=== PATIENT | male | born 1935 | race Caucasian/White ===

== ENCOUNTER 2016-11-23 11:17 | Inpatient (IN) | payer OTHER ==
[2016-11-23 11:36] VITALS: BMI 29.2
[2016-11-23] MEDS ORDERED: Sodium Chloride 0.9% 500 ML IV ONE ×2 (12:49→13:08)
[2016-11-23 13:14] LABS: BASO % 0.7 % (0.0-2.0); EOS # 0.1 K/uL (0.0-0.7); EOS % 1.8 % (0.0-4.0); LYMPH # 1.5 K/uL (1.0-4.3); LYMPH % 26.8 % (20.0-40.0); MEAN CELL VOLUME 89.3 fL (80.0-94.0); MEAN CORPUSCULAR HEMOGLOBIN 29.4 pg (27.0-31.0); MEAN CORPUSCULAR HGB CONC 32.9 g/dL (33.0-37.0); MEAN PLATELET VOLUME 11.1 fL (7.2-11.7); MONO # 0.6 K/uL (0.0-0.8); MONO % 11.3 % (0.0-10.0); NRBC % 0.1 % (0.0-2.0); RED CELL DISTRIBUTION WIDTH 13.7 % (11.5-14.5); WHITE BLOOD COUNT 5.7 K/uL (4.8-10.8)
[2016-11-23 13:15] LABS: URINE BILIRUBIN NEGATIVE (NEGATIVE); URINE BLOOD 1+ (NEGATIVE); URINE COLOR Yellow (YELLOW); URINE GLUCOSE (UA) NORMAL (Normal); URINE KETONE NEGATIVE (NEGATIVE); URINE LEUKOCYTE ESTERASE NEG Leu/uL (Negative); URINE PROTEIN NEGATIVE (NEGATIVE); URINE UROBILINOGEN NORMAL mg/dL (0.2-1.0); WBC URINE < 1 /hpf (0-5)
[2016-11-23 13:21] LABS: CHLORIDE 99 mmol/L (98-107)
[2016-11-23 13:22] LABS: POTASSIUM 4.8 mmol/L (3.6-5.2); SODIUM 137 mmol/L (132-148)
[2016-11-23 13:24] LABS: CARBON DIOXIDE 27 mmol/L (22-30); GFR AFRICAN-AMERICAN > 60
[2016-11-23 13:25] LABS: ALB/GLOB RATIO 1.1 (1.0-2.1); ALKALINE PHOSPHATASE 76 U/L (38-126); ALT/SGPT 20 U/L (21-72); AST/SGOT 22 U/L (17-59); BILIRUBIN,TOTAL 1.4 mg/dL (0.2-1.3); BLOOD UREA NITROGEN 24 mg/dL (9-20); GLUCOSE,RANDOM 104 mg/dL (75-110); TOTAL PROTEIN 7.8 g/dL (6.3-8.3)
[2016-11-23 13:37] LABS: RBC URINE 1 /hpf (0-3)
--- NOTE | 2016-11-23 14:03 | RAD ---
PROCEDURE: Left Knee Radiographs. HISTORY: Pain. COMPARISON: None. FINDINGS: BONES: Normal. No fracture. 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 Lesser narrowing of lateral joint compartment. Narrowing of patellofemoral articulation noted. No articular erosions. JOINT EFFUSION: None. OTHER FINDINGS: None. IMPRESSION: Tricompartmental osteoarthritis most severe medially.
--- NOTE | 2016-11-23 14:05 | RAD ---
PROCEDURE: CHEST RADIOGRAPH, 1 VIEW HISTORY: SOB COMPARISON: None available. FINDINGS: LUNGS: Hazy opacity noted at left costophrenic angle. Vague opacity at lateral left base. Possible small pleural effusion cannot rule out consolidation. PLEURA: No right pleural effusion. No pneumothorax per CARDIOVASCULAR: Permanent pacemaker. Sternotomy wires. OSSEOUS STRUCTURES: No significant abnormalities. VISUALIZED UPPER ABDOMEN: Normal. OTHER FINDINGS: None. IMPRESSION: Possible small left pleural effusion versus left basilar consolidation.
--- NOTE | 2016-11-23 14:24 | C.PDOC ---
History Of Present Illness The patient, an 81 y/o male, PMH HTN presents to the emergency department for evaluation of left knee pain and weakness which began s/p fall earlier today. Patient states his left leg is weak and gives out. Admits to hitting head today , no LOC/N/Vsyncope/dizziness. ALso notes two other falls this week. USe cane to ambulate. Also admits to chest pain s/p open heart 5 years ago. He currently reports right hand numbness and slight shortness of breath. 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 Also notes constipation and urinary frequency. No back pain. No fever. No trauma. 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) History/Exam Limitations: language barrier (Portuguese ) Onset/Duration Of Symptoms: Hrs Current Symptoms Are (Timing): Still Present Additional History Per: Patient - Knee Description Of Injury: Fell Past Medical History Reviewed: Historical Data, Nursing Documentation, Vital Signs Vital Signs: Last Vital Signs Temp 99.1 F 11/23/16 17:38 Pulse 77 11/23/16 17:38 Resp 18 11/23/16 17:38 BP 170/71 H 11/23/16 17:38 Pulse Ox 98 11/23/16 17:48 - Medical History PMH: HTN Family History: States: Unknown Family Hx - Social History Hx Alcohol Use: No Hx Substance Use: No - Immunization History Hx Tetanus Toxoid Vaccination: No Hx Influenza Vaccination: Yes Hx Pneumococcal Vaccination: No Review Of Systems Except As Marked, All Systems Reviewed And Found Negative. Constitutional: Negative for: Fever, Chills Cardiovascular: Positive for: Chest Pain Respiratory: Positive for: Shortness of Breath Musculoskeletal: Positive for: Other (+left knee pain and weakness ) Neurological: Positive for: Numbness (right upper extremity ) Physical Exam - Physical Exam Appears: Non-toxic, No Acute Distress Skin: Normal Color, Warm Head: Normacephalic, No Tenderness, No Swelling, Abrasion (superficial to posterior scalp ), No Laceration Eye(s): bilateral: Normal Inspection, PERRL, EOMI Ear(s): Bilateral: Normal Nose: Normal, No Discharge, No Epistaxis, No Septal Hematoma Oral Mucosa: Moist Throat: Normal, No Erythema, No Exudate Neck: Normal ROM, Supple Chest: Symmetrical, No Deformity, No Tenderness Cardiovascular: Rhythm Regular, No Murmur Respiratory: Normal Breath Sounds, No Rales, No Rhonchi, No Wheezing Gastrointestinal/Abdominal: Soft, No Tenderness, No Guarding, No Rebound Back: Normal Inspection, No Vertebral Tenderness, No Paraspinal Tenderness Extremity: Normal ROM, No Tenderness, No Calf Tenderness, Capillary Refill ( less than 2 seconds ), No Deformity, Swelling (mild effusion to left knee ), Other (+superficial abrasion to right knee) Pulses: Left Dorsalis Pedis: Normal, Right Dorsalis Pedis: Normal Neurological/Psych: Oriented x3, Normal Speech, Normal Cognition, Normal Sensation ((-) saddle anesthesia) Gait: Steady ED Course And Treatment - Laboratory Results Result Diagrams: 11/23/16 13:03 11/23/16 13:03 ECG: Interpreted By Me, Viewed By Me Interpretation Of ECG: Atrial-paced rhythm at rate 60 bpm. O2 Sat by Pulse Oximetry: 98 (on RA) Pulse Ox Interpretation: Normal - Other Rad CXR X-Ray: Interpreted by Me, Viewed By Me, Read By Radiologist Interpretation: Accession No. : [id number]. Patient Name / ID : RICHARD BEGUM / [id number]. Exam Date : 11/23/2016 12:52:36 ( Approved ). Study Comment : Sex / Age : M / 81Y. Creator : NICOLAS ZEPEDA. Dictator : Venkatesh Rosen MD. Mailing Machine Operator : Education Program Associate : Venkatesh Rosen MD. Approver2 : Report Date : 11/23/2016 13:05:28. My Comment : . PROCEDURE: CHEST RADIOGRAPH, 1 VIEW. HISTORY: SOB. COMPARISON: None available. FINDINGS: LUNGS: Hazy opacity noted at left costophrenic angle. Vague opacity at lateral left base. Possible small pleural effusion cannot rule out consolidation. PLEURA: No right pleural effusion. No pneumothorax per. CARDIOVASCULAR: Permanent pacemaker. Sternotomy wires. OSSEOUS STRUCTURES: No significant abnormalities. VISUALIZED UPPER ABDOMEN: Normal. OTHER FINDINGS: None. IMPRESSION: Possible small left pleural effusion versus left basilar consolidation. left knee XR X-Ray: Interpreted by Me, Viewed By Me, Read By Radiologist Interpretation: Accession No. : [id number]. Patient Name / ID : RICHARD BEGUM / [id number]. Exam Date : 11/23/2016 12:52:42 ( Approved ). Study Comment : Sex / Age : M / 81Y. Creator : NICOLAS ZEPEDA. Dictator : Venkatesh Rosen MD. Mailing Machine Operator : Education Program Associate : Venkatesh Rosen MD. Approver2 : Report Date : 11/23/2016 13:05:28. My Comment : . PROCEDURE: Left Knee Radiographs. HISTORY: Pain. COMPARISON: None. FINDINGS: BONES: Normal. No fracture. 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 Lesser narrowing of lateral joint compartment. Narrowing of patellofemoral articulation noted. No articular erosions. JOINT EFFUSION: None. OTHER FINDINGS: None. IMPRESSION: Tricompartmental osteoarthritis most severe medially. Progress Note: labs, CT A/P, CXR, Left knee XR, and EKG ordered and reviewed. Pt received Toradol IV and IV Fluids. On re-evaluation, pt notes he deos not feel comofrtable going home. HE is falling too much. Not safe discharge. Pt denies having PMD. Case discussse [facility] Dr Arrington, agreed upon plan and treatment. Case discsused with Dr Amezquita, agreed upon plan and discharge. Disposition - Disposition Disposition: HOSPITALIZED Disposition Time: 17:00 Condition: STABLE - Clinical Impression Clinical Impression: Chest pain, Frequent falls, Weakness - PA / MANAGER GROCERY / Resident Statement MD/DO has reviewed & agrees with the documentation as recorded. - Scribe Statement The provider has reviewed the documentation as recorded by the Scribe (Zeinab Raymundo) All medical record entries made by the Scribe were at my direction and personally dictated by me. I have reviewed the chart and agree that the record accurately reflects my personal performance of the history, physical exam, medical decision making, and the department course for this patient. I have also personally directed, reviewed, and agree with the discharge instructions and disposition.
--- NOTE | 2016-11-23 14:56 | CT ---
PROCEDURE: CT HEAD WITHOUT CONTRAST. HISTORY: fall COMPARISON: None available. TECHNIQUE: Axial computed tomography images were obtained through the head/brain without intravenous contrast. Radiation dose: Total exam DLP = 879.94 mGy-cm. This CT exam was performed using one or more of the following dose reduction techniques: Automated exposure control, adjustment of the mA and/or kV according to patient size, and/or use of iterative reconstruction technique. FINDINGS: HEMORRHAGE: No intracranial hemorrhage. BRAIN: Diffuse atrophy with prominence of the ventricles and sulci noted. No mass effect or edema. The hamilton-white matter differentiation appears intact. Please note that MRI with diffusion imaging is more sensitive in the detection of acute ischemic event. VENTRICLES: No hydrocephalus. CALVARIUM: Unremarkable. PARANASAL SINUSES: Unremarkable as visualized. No significant inflammatory changes. MASTOID AIR CELLS: Under aeration of the mastoid air cells. No air-fluid levels. OTHER FINDINGS: None. IMPRESSION: No acute findings. See above.
--- NOTE | 2016-11-23 17:39 | CP.PCM.HP ---
<Riya Saldivar - Last Filed: 11/23/16 18:10> History of Present Illness - History of Present Illness History of Present Illness: CC: "I keep falling" HPI: Patient is an 81 year old Greek speaking male who presents to the emergency department status post fall earlier today. Patient was brought into the emergency department by his family. Patient states this is the third fall which has occurred in the past 5 days. He had unwitnessed fall 5 and 3 days ago , which did not result in trauma. Patient noted he alerted his neighbors by throwing an orange to them to have assistance following fall. He denies loss of consciousness, vertigo, lightheadedness, tinnitus and trauma. Patient states he fell today by coming down to his knees and subsequently hit hit left head. He denies loss of consciousness on todays episode. Patient attributes falls to severe pain to bilateral lower extremities, generalized fatigue, and blurry vision. He reports pain has been present for the past 5 years but has become increasingly worse over the past few months making ambulation difficult. He typically ambulates using a cane but his mobility has been severely limited as of late due to 10/10 intensity sharp pain to legs, left greater than right. Patient also admits to numbness and tingling to bilateral lower extremities, . Patient admits to reproducible chest pain and notes he follow-up regularly with principal secretary, Dr. Vick Pearson. He is uncertain of his medical history but states he had open heart surgery and pacemaker in the past and admits to history of hypertension and hyperlipidemia. Patient also admits to abdominal pain, nausea, constipation x 3 days, and increased urinary frequency. He denies dysuria. PMD: Dr. Prudencio Artis Mat Cutter: Dr. Pearson Urology: Dr. Horner HPI: hypertension, hyperlipidemia, bradycardia s/p pacemaker placement Medications: Aspirin 81 mg po daily, Metoprolol 25 mg po daily, Solifenacin 10 mg po daily Allergies: NKDA Family History: patient does not know family history Surgical History: Bypass surgery, pacemaker placement Social: Denies tobacco, alcohol, and illicit drug use. Patient uses cane to ambulate. Lives at home with and son. Present on Admission - Present on Admission Any Indicators Present on Admission: No History of DVT/PE: No History of Uncontrolled Diabetes: No Urinary Catheter: No Decubitus Ulcer Present: No Review of Systems - Constitutional Constitutional: Frequent Falls, Lethargy. absent: Anorexia, Chills, Fever, Headache - EENT Eyes: Blurred Vision, Change in Vision Ears: Ear Discharge. absent: Ear Pain, Tinnitus, Disequilibrium, Dizziness Nose/Mouth/Throat: absent: Nasal Congestion, Nasal Discharge - Cardiovascular Cardiovascular: Chest Pain, Claudication. absent: Diaphoresis, Dyspnea, Pain Radiating to Arm/Neck/Jaw, Lightheadedness, Orthopnea, Palpitations, Pedal Edema , Radiating Pain, Rapid Heart Rate, Syncope - Respiratory Respiratory: absent: Cough, Dyspnea, Dyspnea on Exertion, Wheezing, Chest Congestion - Gastrointestinal Gastrointestinal: Abdominal Pain, Constipation, Nausea. absent: Cramping, Diarrhea, Dysphagia, Hematochezia - Genitourinary Genitourinary: Urinary Frequency. absent: Dysuria - Musculoskeletal Musculoskeletal: Abnormal Gait, Joint Swelling, Muscle Cramps, Numbness, Radiating Pain into Limb, Tingling - Integumentary Integumentary: absent: Changing Lesions, New Lesions - Neurological Neurological: Numbness, Frequent Falls, Tingling. absent: Confusion, Dizziness , Headaches, Weakness - Psychiatric Psychiatric: absent: Anxiety, Depression Past Patient History - Past Social History Smoking Status: Never Smoked - CARDIAC Hx Hypertension: Yes - PSYCHIATRIC Hx Substance Use: No - SURGICAL HISTORY Hx Surgeries: Yes Other/Comment: heart implant Meds Allergies/Adverse Reactions: Allergies Allergy/AdvReac Type Severity Reaction Status Date / Time No Known Allergies Allergy Verified 11/23/16 11:35 Physical Exam - Constitutional Appears: Non-toxic, No Acute Distress - Head Exam Head Exam: ATRAUMATIC, NORMAL INSPECTION, NORMOCEPHALIC - Eye Exam Eye Exam: EOMI, Normal appearance, PERRL - ENT Exam ENT Exam: Mucous Membranes Dry - Neck Exam Neck exam: Positive for: Full Rom, Normal Inspection. Negative for: Lymphadenopathy, Tenderness - Respiratory Exam Respiratory Exam: Clear to Auscultation Bilateral, NORMAL BREATHING PATTERN. absent: Decreased Breath Sounds, Rales, Rhonchi, Wheezes - Cardiovascular Exam Cardiovascular Exam: RRR, +S1, +S2. absent: Bradycardia, Tachycardia, Diastolic murmur, Gallop, Systolic Murmur - GI/Abdominal Exam GI & Abdominal Exam: Normal Bowel Sounds, Soft. absent: Distended, Firm, Guarding, Mass, Rigid - Extremities Exam Extremities exam: Positive for: joint swelling, tenderness. Negative for: pedal edema Additional comments: swelling to bilateral knees right lower extremity cooler in temperature than left no pain reaction illicited on right lower extremity. Pain to palpation of left lower extremity Pedal pulse greatly diminished on right LE 2+ Pedal pulse on left limited range of motion of bilateral lower extremity - Neurological Exam Neurological exam: Alert, CN II-XII Intact, Oriented x3 - Psychiatric Exam Psychiatric exam: Normal Affect, Normal Mood Additional comments: continuous oral movements Results - Vital Signs Recent Vital Signs: Last Vital Signs Temp 97.9 F 11/23/16 11:29 Pulse 61 11/23/16 14:30 Resp 18 11/23/16 14:30 BP 161/75 H 11/23/16 14:30 Pulse Ox 98 11/23/16 16:04 - Labs Result Diagrams: 11/23/16 13:03 11/23/16 13:03 Assessment & Plan - Assessment and Plan (Free Text) Assessment: Fall likely secondary to PAD, osteoarthritis Reduced pedal pulse and cool temperature of right lower extremity Venous and Arterial dopplers of bilateral lower extremities ordered Vascular surgeon, Dr. Vazquez, consulted. Help appreciated. 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 Lesser narrowing of lateral joint compartment. Narrowing of patellofemoral articulation noted. No articular erosions. Cranial nerves grossly intact Head CT: Diffuse atrophy with prominence of the ventricles and sulci noted. No mass effect or edema. The hamilton-white matter differentiation appears intact. ( please see full report) Mat Cutter, Dr. Pearson, consulted. Per Dr. Pearson, falls unlikely due to cardiac problem. Troponin I negative. Follow-up CIRILO panel and serial EKGs Admitted to telemetry PT/OT Fall risk protocol Hypertension Continue home medication Metoprolol 25 mg po daily Asa 81 mg po daily f/u hemoglobin a1c Hyperlipidemia Follow-up Lipid panel Overactive Bladder Continue home medication Solifenacin 10 mg po daily Prophylaxis Heparin 5000 U SC q12h Pepcid 20 mg po daily SCD Heart Healthy Diet PT/OT - Date & Time Date: 11/23/16 Time: 18:33 <Shani Dominique V - Last Filed: 11/23/16 23:17> Results - Vital Signs Recent Vital Signs: Last Vital Signs Temp 98.3 F 11/23/16 18:20 Pulse 64 11/23/16 18:20 Resp 20 11/23/16 18:20 BP 166/81 H 11/23/16 19:05 Pulse Ox 98 11/23/16 19:20 - Labs Result Diagrams: 11/23/16 13:03 11/23/16 13:03 Labs: Laboratory Results - last 24 hr 11/23/16 19:44 Total Creatine Kinase 57 CK-MB (Mass) 1.47 Troponin I, Quant < 0.0120 Attending/Attestation - Attestation I have personally seen and examined this patient.: Yes I have fully participated in the care of the patient.: Yes I have reviewed all pertinent clinical information: Yes Notes (Text): Patient seen, examined and case discussed with day-time resident. Patient seen in [facility] on 11/23/16 at approximately 5:45PM. Patient has extensive cardiac history including open heart surgery and pacemaker comes in for recurrent falls, denies LOC, last fall witnessed by his neighbors. Patient attributes to increasing leg pains. Reviewed Left knee xrays which shows severe arthritis and head CT which is negative for acute findings. Will consult patient's principal secretary-->Dr Pearson in regards to patient's cardiac history Will consult vascular surgery to evaluate patient for peripheral vascular discharge given patient cardiac hx coupled with patient's leg pains it is plausible to investigate further. Discussed admitting orders with resident, reviewed physical examination, labs, and imaging completed on admission Attempted to call patient's PMD noted on ED triage, but office closed for today. Assessment/Plan 1) Fall Contibuting etiologies including PVD and osteoarthritis Reduced pedal pulse and cool temperature of right lower extremity during exam Venous and Arterial dopplers of bilateral lower extremities ordered Vascular surgeon, Dr. Vazquez, consulted. Help appreciated. 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 Lesser narrowing of lateral joint compartment. Narrowing of patellofemoral articulation noted. No articular erosions. Cranial nerves grossly intact Head CT (11/23/16): Diffuse atrophy with prominence of the ventricles and sulci noted. No mass effect or edema. The hamilton-white matter differentiation appears intact. (please see full report) Mat Cutter, Dr. Pearson, consulted. Per Dr. Pearson, falls unlikely due to cardiac problem. Troponin I negative. Follow-up CIRILO panel and serial EKGs Admitted to telemetry PT/OT Fall risk protocol 2) Hypertension Continue home medication Metoprolol XL 25 mg po daily Asa 81 mg po daily f/u hemoglobin a1c in AM Hydralazine 10mg Iv Q 6hour PRN SBP>160 3) Hyperlipidemia Follow-up Lipid panel in AM 4) History of Overactive Bladder Continue home medication Solifenacin 10 mg po daily 5) Prophylaxis Heparin 5000 U SC q12h Pepcid 20 mg po daily SCD Heart Healthy Diet PT/OT eval Fall risk precaution
[2016-11-23] MEDS ORDERED: Metoprolol 1 mg/ml Inj IVP ONE (18:44)
[2016-11-23] MEDS: Sodium Chloride 0.9% 1,000 ML IV SCH (23:13)
--- NOTE | 2016-11-24 06:10 | CP.PCM.CON ---
History of Present Illness - History of Present Illness History of Present Illness: Surgery Consult: Dr. Vazquez Pt is an 81M with PMHx significant for HTN, HLD and a pacemaker for bradycardia who presented to due to multiple falls recently. Pt states this is the third time he has fallen in the last 2 weeks and attributes his falls to weakness in his legs. He denies any loss of consciousness or dizziness prior/after the falls. Pt also admits to pain in his lower extremities nakul his Left leg. On this admission, pt was brought to the ER by family and CT head obtained was negative. Pt ambulates with a cane but admits to having limited mobility 2/2 weakness/pain in his legs lately. Denies other complaints at this time. Vascular surgery has been consulted to evaluate diminished pedal pulses in the R extremity. PMHx: HTN, HLD, bradycardia (s/p pacemaker placement) PSHx: bypass surgery SocialHx: denies smoking/EtOH Review of Systems - Review of Systems All systems: reviewed and no additional remarkable complaints except (as per HPI ) Past Patient History - Past Medical History & Family History Past Medical History?: Yes - Past Social History Smoking Status: Never Smoked - CARDIAC Hx Hypertension: Yes - MUSCULOSKELETAL/RHEUMATOLOGICAL Hx Falls: Yes - PSYCHIATRIC Hx Substance Use: No - SURGICAL HISTORY Hx Surgeries: Yes Other/Comment: heart implant - ANESTHESIA Hx Anesthesia: Yes Hx Anesthesia Reactions: No Hx Malignant Hyperthermia: No Has any member of the family had a problem w/ anesthesia?: No Meds Allergies/Adverse Reactions: Allergies Allergy/AdvReac Type Severity Reaction Status Date / Time No Known Allergies Allergy Verified 11/23/16 11:35 - Medications Medications: Current Medications Aspirin (Ecotrin) 81 mg PO DAILY [facility] Famotidine (Pepcid) 20 mg PO DAILY [facility] Heparin Sodium (Porcine) (Heparin) 5,000 units SC Q12 [facility] Last Admin: 11/23/16 23:13 Dose: 5,000 units Home Med (Home Med) 10 unit PO DAILY [facility] Hydralazine HCl (Apresoline) 10 mg IVP Q6H PRN PRN Reason: Systolic Blood Pressure Sodium Chloride (Sodium Chloride 0.9%) 1,000 mls @ 50 mls/hr IV .Q20H [facility] Last Admin: 11/23/16 23:13 Dose: 50 mls/hr Metoprolol Succinate (Toprol Xl) 25 mg PO DAILY [facility] Physical Exam - Constitutional Appears: Well, No Acute Distress - Head Exam Head Exam: ATRAUMATIC, NORMOCEPHALIC - Eye Exam Eye Exam: Normal appearance - ENT Exam ENT Exam: Mucous Membranes Moist - Respiratory Exam Respiratory Exam: NORMAL BREATHING PATTERN - Cardiovascular Exam Cardiovascular Exam: RRR - GI/Abdominal Exam GI & Abdominal Exam: Soft. absent: Tenderness - Rectal Exam Rectal Exam: Deferred - Extremities Exam Extremities exam: Positive for: tenderness (L leg > R leg) Additional comments: 2+ pedal pulses on L diminished pulses on R - Neurological Exam Neurological exam: Alert, Oriented x3 - Skin Skin Exam: Dry, Warm Results - Vital Signs Recent Vital Signs: Last Vital Signs Temp 96.6 F L 11/23/16 23:59 Pulse 61 11/24/16 01:00 Resp 16 11/23/16 23:59 BP 118/70 11/23/16 23:59 Pulse Ox 98 11/23/16 23:59 - Labs Result Diagrams: 11/23/16 13:03 11/23/16 13:03 Labs: Laboratory Results - last 24 hr 11/23/16 11/24/16 19:44 01:57 Total Creatine Kinase 57 61 CK-MB (Mass) 1.47 1.49 Troponin I, Quant < 0.0120 < 0.0120 - Imaging and Cardiology CT scan - head Status: Image reviewed by me, Report reviewed by me Assessment & Plan - Assessment and Plan (Free Text) Assessment: 81M s/p multiple falls; vascular surgery consulted to evaluate diminished R pedal pulses Plan: - will f/u arterial/venous dopplers - will order ABIs for b/l extremities - will d/w Dr. Taylor Chaudhary PGY-2 Surgery
--- NOTE | 2016-11-24 07:48 | CP.PCM.PN ---
Subjective - Date & Time of Evaluation Date of Evaluation: 11/24/16 Time of Evaluation: 07:45 - Subjective Subjective: Patient seen and examined at bedside. He continues to complain of significant pain to bilateral lower extremities. He states pain is worse with movement of his legs and notes rigidity of his knees. Patient states he did not sleep well due to leg pain and increased urinary frequency. He also notes abdominal distention and constipation for 4 days. Patient denies chest pain, shortness of breath, palpitations, nausea, vomiting, diarrhea, and dysuria. He complains of increased excretion of white phlegm and dry mouth but denies cough. Objective - Vital Signs/Intake and Output Vital Signs (last 24 hours): Temp Pulse Resp BP Pulse Ox 96.6 F L 61 16 118/70 98 11/23/16 23:59 11/24/16 01:00 11/23/16 23:59 11/23/16 23:59 11/23/16 23:59 Intake and Output: 11/24/16 11/24/16 06:59 18:59 Intake Total 450 Balance 450 - Medications Medications: Current Medications Aspirin (Ecotrin) 81 mg PO DAILY [facility] Famotidine (Pepcid) 20 mg PO DAILY [facility] Heparin Sodium (Porcine) (Heparin) 5,000 units SC Q12 [facility] Last Admin: 11/23/16 23:13 Dose: 5,000 units Home Med (Home Med) 10 unit PO DAILY [facility] Hydralazine HCl (Apresoline) 10 mg IVP Q6H PRN PRN Reason: Systolic Blood Pressure Sodium Chloride (Sodium Chloride 0.9%) 1,000 mls @ 50 mls/hr IV .Q20H [facility] Last Admin: 11/23/16 23:13 Dose: 50 mls/hr Metoprolol Succinate (Toprol Xl) 25 mg PO DAILY [facility] - Constitutional Appears: Non-toxic, No Acute Distress - Head Exam Head Exam: ATRAUMATIC, NORMAL INSPECTION, NORMOCEPHALIC - Eye Exam Eye Exam: EOMI, Normal appearance, PERRL - ENT Exam ENT Exam: Mucous Membranes Dry - Respiratory Exam Respiratory Exam: Clear to Ausculation Bilateral, NORMAL BREATHING PATTERN. absent: Rales, Rhonchi, Wheezes - Cardiovascular Exam Cardiovascular Exam: +S1, +S2. absent: Bradycardia, Tachycardia - GI/Abdominal Exam GI & Abdominal Exam: Distended, Soft, Normal Bowel Sounds. absent: Tenderness - Extremities Exam Extremities Exam: Joint Swelling, Tenderness. absent: Calf Tenderness, Full ROM , Pedal Edema - Back Exam Back Exam: NORMAL INSPECTION - Neurological Exam Neurological Exam: Alert, Awake, Oriented x3 - Psychiatric Exam Psychiatric exam: Normal Affect, Normal Mood - Skin Skin Exam: Intact, Normal Color Assessment and Plan - Assessment and Plan (Free Text) Assessment: Fall likely secondary to PAD, osteoarthritis Reduced pedal pulse and cool temperature of right lower extremity Venous and Arterial dopplers of bilateral lower extremities - negative. SAM of right 0.86 and left 1.15 Vascular surgeon, Dr. Vazquez, consulted. Help appreciated. Surgery to order ABIs of bilateral LE. 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 Lesser narrowing of lateral joint compartment. Narrowing of patellofemoral articulation noted. No articular erosions. Cranial nerves grossly intact Head CT: Diffuse atrophy with prominence of the ventricles and sulci noted. No mass effect or edema. The hamilton-white matter differentiation appears intact. ( please see full report) [employer] Poker Player, Dr. Pearson, consulted. Per Dr. Pearson, falls unlikely due to cardiac problem. Troponin I negative. CIRILO panel - negative serial EKGs - no acute changes f/u echocardiogram Admitted to telemetry PT/OT Fall risk protocol Hypertension Elevated BP of 200/87 for SBP >160 Started Hydralazine 10 mg IVP q6h PRN Continue home medication Metoprolol 25 mg po daily Asa 81 mg po daily f/u hemoglobin a1c Monitor Hyperlipidemia Lipid Panel: elevated cholesterol 209, elevated LDL 149 Overactive Bladder Continue home medication Solifenacin 10 mg po daily urinalysis - 1+ blood f/u Renal ultrasound Prophylaxis Heparin 5000 U SC q12h Pepcid 20 mg po daily SCD Heart Healthy Diet PT/OT
[2016-11-24 08:27] LABS: BASO % 0.5 % (0.0-2.0); EOS # 0.1 K/uL (0.0-0.7); EOS % 2.2 % (0.0-4.0); HEMATOCRIT 43.5 % (35.0-51.0); LYMPH # 1.7 K/uL (1.0-4.3); LYMPH % 30.1 % (20.0-40.0); MEAN CELL VOLUME 88.8 fL (80.0-94.0); MEAN CORPUSCULAR HEMOGLOBIN 29.6 pg (27.0-31.0); MEAN CORPUSCULAR HGB CONC 33.3 g/dL (33.0-37.0); MEAN PLATELET VOLUME 11.2 fL (7.2-11.7); MONO # 0.8 K/uL (0.0-0.8); MONO % 13.5 % (0.0-10.0); NRBC % 0.1 % (0.0-2.0); RED CELL DISTRIBUTION WIDTH 13.7 % (11.5-14.5); WHITE BLOOD COUNT 5.6 K/uL (4.8-10.8)
[2016-11-24 08:51] LABS: CHLORIDE 103 mmol/L (98-107); SODIUM 137 mmol/L (132-148)
[2016-11-24 08:53] LABS: ALKALINE PHOSPHATASE 66 U/L (38-126); AST/SGOT 15 U/L (17-59); BILIRUBIN,TOTAL 1.5 mg/dL (0.2-1.3); BLOOD UREA NITROGEN 21 mg/dL (9-20); CARBON DIOXIDE 24 mmol/L (22-30); CHOLESTEROL 209 mg/dL (0-199); GFR AFRICAN-AMERICAN > 60; TOTAL PROTEIN 6.8 g/dL (6.3-8.3)
[2016-11-24 08:54] LABS: ALT/SGPT 16 U/L (21-72); CALCIUM 8.3 mg/dl (8.6-10.4); GLUCOSE,RANDOM 111 mg/dL (75-110); MAGNESIUM 2.1 mg/dL (1.6-2.3)
[2016-11-24] MEDS ORDERED: Home Med 1 UNIT PO SCH (10:00)
[2016-11-24] MEDS: Metoprolol Succinate 25 mg XL Tab PO SCH (10:16)
--- NOTE | 2016-11-24 11:50 | CARD ---
APPROVED REPORT EKG Measurement Heart [id number] <Conclusion> Normal sinus rhythm Minimal voltage criteria for LVH, may be normal variant Inferior infarct, age undetermined Abnormal ECG
--- NOTE | 2016-11-24 11:58 | CARD ---
APPROVED REPORT EKG Measurement Heart [id number] <Conclusion> Atrial-paced rhythm Moderate voltage criteria for LVH, may be normal variant Inferior infarct, age undetermined Abnormal ECG
--- NOTE | 2016-11-24 12:03 | CP.PCM.CON ---
History of Present Illness - History of Present Illness History of Present Illness: 9 years old gentleman with prior history of coronary artery bypass surgery on medical treatment included statin and beta lizeth in addition to aspirin. He had significant bradycardia with dizziness, a pacemaker was placed at the [facility] about 4 years ago. He has been with arthritis and deteriorating musculoskeletal ability walking with a cane. At this time he's admitted with multiple falls without syncope and without dizziness. No shortness of breath or chest pain, no loss of consciousness. The CAT scan of the head was negative for any CVA. Peripheral vascular disease workup is being undertaken. We'll continue observation from the cardiac viewpoint and to do an echocardiogram. Prior history of benign prostatic hypertrophy on Flomax Review of Systems - Review of Systems Systems not reviewed;Unavailable: Language Barrier - Constitutional Constitutional: Anorexia, Weakness - EENT Eyes: absent: Discharge, Exophthalmos Nose/Mouth/Throat: absent: Nasal Congestion - Cardiovascular Cardiovascular: absent: Acrocyanosis, Chest Pain, Dyspnea on Exertion, Edema, Palpitations, Syncope - Respiratory Respiratory: absent: Cough, Dyspnea, Hemoptysis - Gastrointestinal Gastrointestinal: absent: Abdominal Pain, Constipation, Hematochezia - Genitourinary Genitourinary: absent: Change in Urinary Stream Past Patient History - Past Medical History & Family History Past Medical History?: Yes - Past Social History Smoking Status: Never Smoked - CARDIAC Hx Hypertension: Yes - MUSCULOSKELETAL/RHEUMATOLOGICAL Hx Falls: Yes - PSYCHIATRIC Hx Substance Use: No - SURGICAL HISTORY Hx Surgeries: Yes Other/Comment: heart implant - ANESTHESIA Hx Anesthesia: Yes Hx Anesthesia Reactions: No Hx Malignant Hyperthermia: No Has any member of the family had a problem w/ anesthesia?: No Meds Allergies/Adverse Reactions: Allergies Allergy/AdvReac Type Severity Reaction Status Date / Time No Known Allergies Allergy Verified 11/23/16 11:35 - Medications Medications: Current Medications Aspirin (Ecotrin) 81 mg PO DAILY [facility] Last Admin: 11/24/16 10:16 Dose: 81 mg Famotidine (Pepcid) 20 mg PO DAILY [facility] Last Admin: 11/24/16 10:16 Dose: 20 mg Heparin Sodium (Porcine) (Heparin) 5,000 units SC Q12 [facility] Last Admin: 11/24/16 10:16 Dose: 5,000 units Home Med (Home Med) 10 unit PO DAILY [facility] Hydralazine HCl (Apresoline) 10 mg IVP Q6H PRN PRN Reason: Systolic Blood Pressure Sodium Chloride (Sodium Chloride 0.9%) 1,000 mls @ 50 mls/hr IV .Q20H [facility] Last Admin: 11/23/16 23:13 Dose: 50 mls/hr Metoprolol Succinate (Toprol Xl) 25 mg PO DAILY [facility] Last Admin: 11/24/16 10:16 Dose: 25 mg Physical Exam - Constitutional Appears: Non-toxic - Head Exam Head Exam: ATRAUMATIC - Eye Exam Eye Exam: EOMI - ENT Exam ENT Exam: Mucous Membranes Moist - Neck Exam Neck exam: Negative for: Lymphadenopathy, Thyromegaly - Respiratory Exam Respiratory Exam: Clear to Auscultation Bilateral. absent: Rales - Cardiovascular Exam Cardiovascular Exam: REGULAR RHYTHM, Systolic Murmur - GI/Abdominal Exam GI & Abdominal Exam: Normal Bowel Sounds. absent: Organomegaly - Rectal Exam Rectal Exam: Deferred - Extremities Exam Extremities exam: Positive for: normal capillary refill. Negative for: calf tenderness - Neurological Exam Neurological exam: Alert, Oriented x3 - Psychiatric Exam Psychiatric exam: Normal Mood - Skin Skin Exam: Dry Results - Vital Signs Recent Vital Signs: Last Vital Signs Temp 98.2 F 11/24/16 08:18 Pulse 61 11/24/16 08:18 Resp 20 11/24/16 08:18 BP 171/75 H 11/24/16 08:18 Pulse Ox 96 11/24/16 08:18 - Labs Result Diagrams: 11/24/16 08:20 11/24/16 08:20 Labs: Laboratory Results - last 24 hr 11/23/16 11/24/16 11/24/16 19:44 01:57 08:20 WBC RBC Hgb Hct MCV MCH MCHC RDW Plt Count MPV Neut % (Auto) Lymph % (Auto) [place] % (Auto) Eos % (Auto) Baso % (Auto) Neut # Lymph # [place] # Eos # Baso # PT 10.8 INR 1.0 APTT 34 Sodium Potassium Chloride Carbon Dioxide Anion Gap BUN Creatinine Est GFR ( Amer) Est GFR (Non-Af Amer) Random Glucose Hemoglobin A1c Calcium Magnesium Total Bilirubin AST ALT Alkaline Phosphatase Total Creatine Kinase 57 61 CK-MB (Mass) 1.47 1.49 Troponin I, Quant < 0.0120 < 0.0120 Total Protein Albumin Globulin Albumin/Globulin Ratio Triglycerides Cholesterol LDL Cholesterol Direct HDL Cholesterol 11/24/16 11/24/16 11/24/16 08:20 08:20 08:20 WBC 5.6 RBC 4.90 Hgb 14.5 Hct 43.5 MCV 88.8 MCH 29.6 MCHC 33.3 RDW 13.7 Plt Count 192 MPV 11.2 Neut % (Auto) 53.7 Lymph % (Auto) 30.1 [place] % (Auto) 13.5 H Eos % (Auto) 2.2 Baso % (Auto) 0.5 Neut # 3.0 Lymph # 1.7 [place] # 0.8 Eos # 0.1 Baso # 0.0 PT INR APTT Sodium 137 Potassium 4.0 Chloride 103 Carbon Dioxide 24 Anion Gap 14 BUN 21 H Creatinine 1.0 Est GFR ( Amer) > 60 Est GFR (Non-Af Amer) > 60 Random Glucose 111 H Hemoglobin A1c 5.9 Calcium 8.3 L Magnesium 2.1 Total Bilirubin 1.5 H AST 15 L D ALT 16 L Alkaline Phosphatase 66 Total Creatine Kinase CK-MB (Mass) Troponin I, Quant Total Protein 6.8 Albumin 3.4 L Globulin 3.4 Albumin/Globulin Ratio 1.0 Triglycerides 110 Cholesterol 209 H LDL Cholesterol Direct 149 H HDL Cholesterol 34 Assessment & Plan (1) 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
[2016-11-24] MEDS ORDERED: Bisacodyl 5mg EC Tab PO ONE (12:48)
[2016-11-24] MEDS: Sodium Chloride 0.9% 1,000 ML IV SCH (14:09)
--- NOTE | 2016-11-24 14:29 | CP.PCM.CON ---
History of Present Illness - History of Present Illness History of Present Illness: Palliative consult Requested by Catina MARTINEZ Reason: goals of care discussion Patient is a 81 yo Y[place] man, admitted S/P fall without syncopy or dizziness. Patient reports couple more falls at home within last 5 days. On the before last fall, patient admits hitting the head. Patient also noticed right hand weakness. The left knee X Ray was and head CT negative acute findings. Doppler study results pending. PMH: extensive cardiac hx, fallowed up by Doctor Elieser, PPM 4 years ago Soc. Hx: lives at home with and son Fam> hx" unknown Review of Systems - Constitutional Constitutional: Weakness - EENT Eyes: absent: As Per HPI, Blind Spots, Blurred Vision, Change in Vision, Decreased Night Vision, Diplopia, Discharge, Dry Eye, Exophthalmos, Floaters, Irritation, Itchy Eyes, Loss of Peripheral Vision, Pain, Photophobia, Requires Corrective Lenses, Sees Flashes, Spots in Vision, Tunnel Vision, Other Visual Disturbances, Loss of Vision, Other Additional comments: Edentulous - Cardiovascular Additional comments: PPM - Respiratory Respiratory: absent: As Per HPI, Cough, Dyspnea, Hemoptysis, Dyspnea on Exertion , Wheezing, Snoring, Stridor, Pain on Inspiration, Chest Congestion, Excessive Mucous Production, Change in Mucous Color, Pain with Coughing, Other - Gastrointestinal Gastrointestinal: absent: As Per HPI, Abdominal Pain, Belching, Bloating, Change in Bowel Habits, Change in Stool Character, Coffee Ground Emesis, Constipation, Cramping, Diarrhea, Dyspepsia, Dysphagia, Early Satiety, Excessive Flatus, Fecal Incontinence, Heartburn, Hematemesis, Hematochezia, Loose Stools, Melena, Nausea, Odynophagia, Temesmus, Vomiting, Other - Genitourinary Genitourinary: absent: As Per HPI, Change in Urinary Stream, Difficulty Urinating, Dysuria, Flank Pain, Hematuria, Pyuria, Nocturia, Urinary Incontinence, Urinary Frequency, Urinary Hesitance, Urinary Urgency, Voiding Freq/Small Amts, Freq UTI, Hx Renal/Bladder Calculi, Hx /Renal Surgery, Bladder Distension, Other - Musculoskeletal Musculoskeletal: Abnormal Gait, Muscle Weakness - Integumentary Integumentary: absent: As Per HPI, Acne, Alopecia, Bleeding Lesions, Change in Hair, Change in Nails, Change in Pigmentation, Changing Lesions, Dry Skin, Erythema, Furuncle, Hirsutism, Lesions, New Lesions, Non-Healing Lesions, Photosensitivity, Pruritus, Rash, Skin Pain, Skin Ulcer, Sores, Striae, Swelling , Unusual Bruising, Wounds, Jaundice, Other - Neurological Neurological: Frequent Falls - Psychiatric Psychiatric: absent: As Per HPI, Abnormal Sleep Pattern, Anhedonia, Anxiety, Auditory Hallucinations, Behavioral Changes, Change in Appetite, Change in Libido, Confusion, Depression, Difficulty Concentrating, Hallucinations, Homicidal Ideation, Hopelessness, Irritability, Memory Loss, Mood Swings, Panic Attacks, Paranoia, Suicidal Ideation, Visual Hallucinations, Tactile Hallucinations, Other - Endocrine Endocrine: absent: As Per HPI, Change in Body Appearance, Change in Libido, Cold Intolorance, Deepening of Voice, Excessive Sweating, Fatigue, Flushing, Heat Intolorance, Increase in Ring/Shoe/Hat Size, Palpitations, Polydipsia, Polyphagia, Polyuria, Other - Hematologic/Lymphatic Hematologic: absent: As Per HPI, Easy Bleeding, Easy Bruising, Lymphadenopathy, Other Past Patient History - Past Medical History & Family History Past Medical History?: Yes - Past Social History Smoking Status: Never Smoked - CARDIAC Hx Hypertension: Yes - MUSCULOSKELETAL/RHEUMATOLOGICAL Hx Falls: Yes - PSYCHIATRIC Hx Substance Use: No - SURGICAL HISTORY Hx Surgeries: Yes Other/Comment: heart implant - ANESTHESIA Hx Anesthesia: Yes Hx Anesthesia Reactions: No Hx Malignant Hyperthermia: No Has any member of the family had a problem w/ anesthesia?: No Meds Allergies/Adverse Reactions: Allergies Allergy/AdvReac Type Severity Reaction Status Date / Time No Known Allergies Allergy Verified 11/23/16 11:35 - Medications Medications: Current Medications Aspirin (Ecotrin) 81 mg PO DAILY [facility] Last Admin: 11/24/16 10:16 Dose: 81 mg Famotidine (Pepcid) 20 mg PO DAILY [facility] Last Admin: 11/24/16 10:16 Dose: 20 mg Heparin Sodium (Porcine) (Heparin) 5,000 units SC Q12 [facility] Last Admin: 11/24/16 10:16 Dose: 5,000 units Home Med (Home Med) 10 unit PO DAILY [facility] Hydralazine HCl (Apresoline) 10 mg IVP Q6H PRN PRN Reason: Systolic Blood Pressure Sodium Chloride (Sodium Chloride 0.9%) 1,000 mls @ 50 mls/hr IV .Q20H [facility] Last Admin: 11/24/16 14:09 Dose: Not Given Metoprolol Succinate (Toprol Xl) 25 mg PO DAILY [facility] Last Admin: 11/24/16 10:16 Dose: 25 mg Saliva Substitute (Mouth Kote 236 Ml) 236 ml MM BID PRN PRN Reason: Dry mouth Physical Exam - Constitutional Appears: No Acute Distress - Head Exam Head Exam: ATRAUMATIC, NORMAL INSPECTION, NORMOCEPHALIC - Eye Exam Eye Exam: EOMI, Normal appearance, PERRL Pupil Exam: NORMAL ACCOMODATION, PERRL - ENT Exam ENT Exam: Mucous Membranes Moist, Normal Exam - Neck Exam Neck exam: Positive for: Normal Inspection - Respiratory Exam Respiratory Exam: Decreased Breath Sounds, NORMAL BREATHING PATTERN - Cardiovascular Exam Cardiovascular Exam: REGULAR RHYTHM - GI/Abdominal Exam GI & Abdominal Exam: Normal Bowel Sounds, Soft - Rectal Exam Rectal Exam: Deferred - Extremities Exam Extremities exam: Positive for: pedal edema Additional comments: left knee jerky movements, left arm weakness - Back Exam Back exam: NORMAL INSPECTION - Neurological Exam Neurological exam: Abnormal Gait, Alert, Oriented x3 - Psychiatric Exam Psychiatric exam: Normal Affect, Normal Mood - Skin Skin Exam: Normal Color, Warm Results - Vital Signs Recent Vital Signs: Last Vital Signs Temp 98.2 F 11/24/16 08:18 Pulse 70 11/24/16 12:16 Resp 20 11/24/16 08:18 BP 171/75 H 11/24/16 08:18 Pulse Ox 96 11/24/16 12:16 - Labs Result Diagrams: 11/24/16 08:20 11/24/16 08:20 Labs: Laboratory Results - last 24 hr 11/23/16 11/24/16 11/24/16 19:44 01:57 08:20 WBC RBC Hgb Hct MCV MCH MCHC RDW Plt Count MPV Neut % (Auto) Lymph % (Auto) [place] % (Auto) Eos % (Auto) Baso % (Auto) Neut # Lymph # [place] # Eos # Baso # PT 10.8 INR 1.0 APTT 34 Sodium Potassium Chloride Carbon Dioxide Anion Gap BUN Creatinine Est GFR ( Amer) Est GFR (Non-Af Amer) Random Glucose Hemoglobin A1c Calcium Magnesium Total Bilirubin AST ALT Alkaline Phosphatase Total Creatine Kinase 57 61 CK-MB (Mass) 1.47 1.49 Troponin I, Quant < 0.0120 < 0.0120 Total Protein Albumin Globulin Albumin/Globulin Ratio Triglycerides Cholesterol LDL Cholesterol Direct HDL Cholesterol 11/24/16 11/24/16 11/24/16 08:20 08:20 08:20 WBC 5.6 RBC 4.90 Hgb 14.5 Hct 43.5 MCV 88.8 MCH 29.6 MCHC 33.3 RDW 13.7 Plt Count 192 MPV 11.2 Neut % (Auto) 53.7 Lymph % (Auto) 30.1 [place] % (Auto) 13.5 H Eos % (Auto) 2.2 Baso % (Auto) 0.5 Neut # 3.0 Lymph # 1.7 [place] # 0.8 Eos # 0.1 Baso # 0.0 PT INR APTT Sodium 137 Potassium 4.0 Chloride 103 Carbon Dioxide 24 Anion Gap 14 BUN 21 H Creatinine 1.0 Est GFR ( Amer) > 60 Est GFR (Non-Af Amer) > 60 Random Glucose 111 H Hemoglobin A1c 5.9 Calcium 8.3 L Magnesium 2.1 Total Bilirubin 1.5 H AST 15 L D ALT 16 L Alkaline Phosphatase 66 Total Creatine Kinase CK-MB (Mass) Troponin I, Quant Total Protein 6.8 Albumin 3.4 L Globulin 3.4 Albumin/Globulin Ratio 1.0 Triglycerides 110 Cholesterol 209 H LDL Cholesterol Direct 149 H HDL Cholesterol 34 Assessment & Plan - Assessment and Plan (Free Text) Assessment: Palliative consult Code status Full Code, there is no advance directive on the chart, PPS 40% I reviewed medical records, all diagnostic studies, examined and interviewed patient in the bed. Translation on demand used. Patient is alert, oriented X 3 in no acute distress. patient complains of jerky uncontrolled movements to left knee and pain of 10/10 to left knee and left foot. There is very slight edema to left foot. Patient remains in bed and is using urinal. Goals of care discussed. Patient's big concern is his inability to freely ambulate and fear of falling. Patient reports using walker at home for the last 3 years to ambulate. he also admits to need for extensive assistance with ADLs. Patient's mobility is further limited due to pain of left knee. Advance care planing discussed. patient is very adventist man and is relaying on " God's " wishes. However, if he loses ability to make health care related decisions patient would want his son Meeta, to be a surrogate decision maker. Patient's goals id to return home to his family once his diagnosis established and left knee pain managed. Impression * Unsteady gait and frequent falls due to knee pain and instability * Left knee pain * Limited mobility * High risk for fall * patient's wishes for the end of life care are not documented * patient is a very adventist man and relays on God when it comes to end of life care discussion Suggestion * Pain management ; would apply Lidocain patch to left knee Q 12 hr for pain and Motrin 200 mg PO Q 6 hr PRN pain * Max assistance with ADLs * Patient would like his son Meeta to be called for medical decision making * palliative care will return to patient to complete Advance Directive Thank you very much for consulting Palliative care
--- NOTE | 2016-11-24 16:28 | VASCLAB ---
PROCEDURE: Lower Extremity Venous Duplex Exam. HISTORY: lower extremity pain PRIORS: None. TECHNIQUE: Bilateral common femoral, femoral, popliteal and posterior tibial, peroneal and great saphenous veins were evaluated. Flow was assessed with color Doppler, compressibility, assessment of phasic flow and augmentation response. Report prepared by Senthil Anaya, ASHER, RVT FINDINGS: RIGHT: 1. Common Femoral Vein: 1.1. Compressibility - Fully compressible: Thrombus - None : Flow - Phasic: Augmentation -Normal: Reflux - None. 2. Femoral Vein: 2.1. Compressibility - Fully compressible: Thrombus - None : Flow - Phasic: Augmentation -Normal: Reflux - None. 3. Popliteal Vein: 3.1. Compressibility - Fully compressible: Thrombus - None : Flow - Phasic: Augmentation -Normal: Reflux - None. 4. Posterior Tibial Vein: 4.1. Compressibility - Fully compressible: Thrombus - None: Flow - Phasic: Augmentation -Normal: Reflux - None. 5. Peroneal Vein: 5.1. Compressibility - Fully compressible: Thrombus - None: Flow - Phasic: Augmentation -Normal: Reflux - None. 6. Great Saphenous Vein: 6.1. Compressibility - Fully compressible: Thrombus - None: Flow - Phasic: Augmentation - Normal: Reflux - None. LEFT: 1. Common Femoral Vein: 1.1. Compressibility - Fully compressible: Thrombus - None: Flow - Phasic: Augmentation -Normal: Reflux - None. 2. Femoral Vein: 2.1. Compressibility - Fully compressible: Thrombus - None: Flow - Phasic: Augmentation -Normal: Reflux - None. 3. Popliteal Vein: 3.1. Compressibility - Fully compressible: Thrombus - None : Flow - Phasic: Augmentation -Normal: Reflux - None. 4. Posterior Tibial Vein: 4.1. Compressibility - Fully compressible: Thrombus - None: Flow - Phasic: Augmentation -Normal: Reflux - None. 5. Peroneal Vein: 5.1. Compressibility - Fully compressible: Thrombus - None: Flow - Phasic: Augmentation -Normal: Reflux - None. 6. Great Saphenous Vein: 6.1. Compressibility - : Thrombus - : Flow - : Augmentation - : Reflux - . OTHER FINDINGS: Right: None significant. Left: The left greater saphenous vein has been previously removed. IMPRESSION: Right: No evidence of deep or superficial vein thrombosis of the right lower extremity. Normal valve function noted of the right side. Left: No evidence of deep or superficial vein thrombosis of the left lower extremity. Normal valve function noted of the left side.
--- NOTE | 2016-11-24 16:29 | VASCLAB ---
STUDY DESCRIPTION: HISTORY: diminished R pedal pulses PRIORS: None. TECHNIQUE: Pulse volume recording waveforms and segmental pressures of bilateral lower extremities at multiple levels were obtained. Ankle Brachial Indices (ABIs) were calculated. Report prepared by ASHER Celestin, RVT RIGHT LOWER EXTREMITY: * Brachial artery: Pressure - 169 mmHg. * High thigh: Pressure - mmHg: Ratio - : PVR waveform - Pulsatile * Low thigh: Pressure - mmHg: Ratio - PVR waveform: Pulsatile * Calf: Pressure - 220 mmHg: Ratio - NC PVR waveform: Pulsatile * Posterior tibial Artery: Pressure - 134 mmHg: Ratio - 0.79 PVR waveform: Pulsatile * Dorsalis pedis Artery: Pressure - 146 mmHg: Ratio - 0.86 PVR waveform: Pulsatile * Great toe: Pressure - mmHg: Ratio - PVR waveform: Ankle brachial index (SAM): 0.86 LEFT LOWER EXTREMITY: * Brachial artery: Pressure - 164 mmHg. * High thigh: Pressure - mmHg: Ratio - : PVR waveform - Pulsatile * Low thigh: Pressure - mmHg: Ratio - PVR waveform: Pulsatile * Calf: Pressure - 189 mmHg: Ratio - 1.12 PVR waveform: Pulsatile * Posterior tibial Artery: Pressure - 183 mmHg: Ratio - 1.08 PVR waveform: Pulsatile * Dorsalis pedis Artery: Pressure - 195 mmHg: Ratio - 1.15 PVR waveform: Pulsatile * Great toe: Pressure - mmHg: Ratio - PVR waveform: Ankle brachial index (SAM): 1.15 OTHER FINDINGS: Right: Left: IMPRESSION: Right: This exam reveals mildly decreased perfusion of the right lower extremity, noted at the iliac and tibial artery levels. Elevated tibial pressures likely related to vascular calcifications. Left: There was no evidence of hemodynamically significant arterial insufficiency in the left lower extremity.
--- NOTE | 2016-11-24 16:36 | US ---
PROCEDURE: Ultrasound of the Kidneys HISTORY: UA positive for blood COMPARISON: None available. TECHNIQUE: Sonogram of the kidneys. FINDINGS: RIGHT KIDNEY: Measures: 12.5 x 6.2 x 6.3 cm. 4.9 x 5.1 x 4.9 cm midpole renal cyst. 8 mm echogenic focus with posterior acoustic shadowing consistent with non obstructing right renal calculus. No obstructing calculus or hydronephrosis evident. LEFT KIDNEY: Measures: 10.9 x 5.1 x 4.8 cm. 4.7 x 4.0 x 4.1 cm upper pole renal cyst. 2.4 x 2.7 x 1.8 cm midpole renal cyst. 2.5 x 2.2 x 2.0 cm lower pole renal cyst. No obstructing calculus or hydronephrosis identified. OTHER FINDINGS: None. IMPRESSION: Bilateral renal cysts measuring up to 5.1 cm on the right and 4.7 cm on the left. Nonobstructing 8 mm right renal calculus. No hydronephrosis bilaterally. If indicated, CT renal protocol may be considered for further evaluation.
[2016-11-24] MEDS: Lidocaine 5% Patch TD SCH (17:35)
[2016-11-24 23:33] VITALS: O2SAT 96
[2016-11-25] MEDS ORDERED: MethylPREDNISolone Depo 40 mg/ml Inj IAA ONE (07:10)
[2016-11-25] MEDS ORDERED: Bupivacaine 0.5% Inj(30mL) IJ ONE (07:11)
--- NOTE | 2016-11-25 07:33 | CP.PCM.CON ---
History of Present Illness - History of Present Illness History of Present Illness: Orthopedic consultation requested Dr. Raphael for left knee DJD/falls translation device used 80M complains of left knee pain for approx 5 years that started around the time he had open heart surgery. He says that it feels like the knee does not support his weight and hurts all the time, 10/10 pain. He says he has not seen orthopedic doctor in the past, no prior PT or injections. Review of Systems - Review of Systems All systems: reviewed and no additional remarkable complaints except - Constitutional Additional comments: denies fever - Cardiovascular Additional comments: denies CP - Respiratory Additional comments: no SOB - Musculoskeletal Musculoskeletal: As Per HPI - Integumentary Additional comments: no wounds LLE - Neurological Neurological: Frequent Falls Past Patient History - Past Medical History & Family History Past Medical History?: Yes Past Family History: Reviewed and not pertinent - Past Social History Smoking Status: Never Smoked - CARDIAC Hx Hypertension: Yes - MUSCULOSKELETAL/RHEUMATOLOGICAL Hx Falls: Yes - PSYCHIATRIC Hx Substance Use: No - SURGICAL HISTORY Hx Surgeries: Yes Other/Comment: heart implant - ANESTHESIA Hx Anesthesia: Yes Hx Anesthesia Reactions: No Hx Malignant Hyperthermia: No Has any member of the family had a problem w/ anesthesia?: No Meds Allergies/Adverse Reactions: Allergies Allergy/AdvReac Type Severity Reaction Status Date / Time No Known Allergies Allergy Verified 11/23/16 11:35 - Medications Medications: Current Medications Aspirin (Ecotrin) 81 mg PO DAILY [facility] Last Admin: 11/24/16 10:16 Dose: 81 mg Famotidine (Pepcid) 20 mg PO DAILY [facility] Last Admin: 11/24/16 10:16 Dose: 20 mg Heparin Sodium (Porcine) (Heparin) 5,000 units SC Q12 [facility] Last Admin: 11/24/16 22:40 Dose: 5,000 units Home Med (Home Med) 10 unit PO DAILY [facility] Hydralazine HCl (Apresoline) 10 mg IVP Q6H PRN PRN Reason: Systolic Blood Pressure Sodium Chloride (Sodium Chloride 0.9%) 1,000 mls @ 50 mls/hr IV .Q20H [facility] Last Admin: 11/24/16 14:09 Dose: Not Given Ibuprofen (Motrin Oral Susp) 200 mg PO Q6H [facility] Last Admin: 11/25/16 04:30 Dose: Not Given Lidocaine (Lidoderm) 1 ea TD DAILY [facility] Last Admin: 11/24/16 17:35 Dose: 1 ea Metoprolol Succinate (Toprol Xl) 25 mg PO DAILY [facility] Last Admin: 11/24/16 10:16 Dose: 25 mg Saliva Substitute (Mouth Kote 236 Ml) 236 ml MM BID PRN PRN Reason: Dry mouth Physical Exam - Constitutional Appears: Well, No Acute Distress - Respiratory Exam Respiratory Exam: NORMAL BREATHING PATTERN - Cardiovascular Exam Additional comments: +DP/PT pulses LLE - Extremities Exam Additional comments: LLE: noted moderate varus deformity +DP/PT pulses calves soft NT neg homans no erythema not warm min joint effusion compared to right TTP to med/lat joint lines +PF crepitus noted well healed long scar to medial aspect of knee and lower leg (vein harvest site) Knee injection: Risks, benefits, alternatives of knee injection were explained in detail, patient verbally consented to procedure with help of translation device. The patients leftt knee was prepped in the usual sterile fashion with chloroprep. A 21-gauge 1.5 inch needle was inserted into the knee joint from a superior lateral approach. Through this needle 40mg depomedrol and 5cc 0.5% marcaine was injection. The needle was removed, and sterile dressing, la nena bandage, and ice were applied to knee. Patient tolerated the procedure well. There were no complications. - Expanded Lower Extremities Exam Left Knee exam: tenderness Neuro vacular tendon exam: no vascular compromise - Neurological Exam Neurological exam: Alert, Oriented x3 - Psychiatric Exam Psychiatric exam: Normal Affect, Normal Mood - Skin Skin Exam: Dry, Intact, Normal Color, Warm Additional comments: LLE Results - Vital Signs Recent Vital Signs: Last Vital Signs Temp 98.1 F 11/24/16 23:25 Pulse 59 L 11/24/16 23:25 Resp 18 11/24/16 23:25 BP 144/68 11/24/16 23:25 Pulse Ox 96 11/24/16 23:25 - Labs Result Diagrams: 11/24/16 08:20 11/24/16 08:20 Labs: Laboratory Results - last 24 hr 11/24/16 11/24/16 11/24/16 08:20 08:20 08:20 WBC 5.6 RBC 4.90 Hgb 14.5 Hct 43.5 MCV 88.8 MCH 29.6 MCHC 33.3 RDW 13.7 Plt Count 192 MPV 11.2 Neut % (Auto) 53.7 Lymph % (Auto) 30.1 Childress % (Auto) 13.5 H Eos % (Auto) 2.2 Baso % (Auto) 0.5 Neut # 3.0 Lymph # 1.7 Childress # 0.8 Eos # 0.1 Baso # 0.0 PT 10.8 INR 1.0 APTT 34 Sodium 137 Potassium 4.0 Chloride 103 Carbon Dioxide 24 Anion Gap 14 BUN 21 H Creatinine 1.0 Est GFR ( Amer) > 60 Est GFR (Non-Af Amer) > 60 Random Glucose 111 H Hemoglobin A1c Calcium 8.3 L Magnesium 2.1 Total Bilirubin 1.5 H AST 15 L D ALT 16 L Alkaline Phosphatase 66 Total Protein 6.8 Albumin 3.4 L Globulin 3.4 Albumin/Globulin Ratio 1.0 Triglycerides 110 Cholesterol 209 H LDL Cholesterol Direct 149 H HDL Cholesterol 34 /12/05 08:20 WBC RBC Hgb Hct MCV MCH MCHC RDW Plt Count MPV Neut % (Auto) Lymph % (Auto) Childress % (Auto) Eos % (Auto) Baso % (Auto) Neut # Lymph # Childress # Eos # Baso # PT INR APTT Sodium Potassium Chloride Carbon Dioxide Anion Gap BUN Creatinine Est GFR ( Amer) Est GFR (Non-Af Amer) Random Glucose Hemoglobin A1c 5.9 Calcium Magnesium Total Bilirubin AST ALT Alkaline Phosphatase Total Protein Albumin Globulin Albumin/Globulin Ratio Triglycerides Cholesterol LDL Cholesterol Direct HDL Cholesterol Assessment & Plan (1) Arthritis of knee, left Assessment and Plan: 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 Raphael, agrees with above Status: Acute (2) Varus deformity, not elsewhere classified, left knee Assessment and Plan: see above Status: Acute Procedures Attestation:: I certify that I have explained the specified Operation(s) or Procedure(s), risks, benefits and reasonable alternatives to the Patient and/or other person responsible. The opportunity was given to ask questions and all questions answered - Joint Aspiration/Injection Joint #1 Consent Obtained: Verbal Consent Time Out Performed: Yes Side of Body: Left Joint Aspirated: Knee Ultrasound Guidance Used: No Skin Prep: Chlorprep Medication Injected: Methylprednisolone Amout of Medication Injected: 40 (40mg depomedrol and 5cc 0.5% marcaine) Patient Tolorated Procedure: Well Complications: None Radiology Interpretation - Radiology Interpretation #2 Interpretation: Patient Name / ID : RICHARD BEGUM / [id number] Exam Date : 11/24/2016 10:59:56 ( Approved ) Study Comment : Sex / Age : M / 81Y Creator : jose luis Dictator : jose luis Service Inspector : Cancer Genetics Assistant : Eren Andino MD Approver2 : Report Date : 11/24/2016 14:21:58 My Comment : PROCEDURE: Lower Extremity Venous Duplex Exam. HISTORY: lower extremity pain PRIORS: None. TECHNIQUE: Bilateral common femoral, femoral, popliteal and posterior tibial, peroneal and great saphenous veins were evaluated. Flow was assessed with color Doppler, compressibility, assessment of phasic flow and augmentation response. Report prepared by ASHER Celestin, RVT FINDINGS: RIGHT: 1. Common Femoral Vein: 1.1. Compressibility - Fully compressible: Thrombus - None : Flow - Phasic: Augmentation -Normal: Reflux - None. 2. Femoral Vein: 2.1. Compressibility - Fully compressible: Thrombus - None : Flow - Phasic: Augmentation -Normal: Reflux - None. 3. Popliteal Vein: 3.1. Compressibility - Fully compressible: Thrombus - None : Flow - Phasic: Augmentation -Normal: Reflux - None. 4. Posterior Tibial Vein: 4.1. Compressibility - Fully compressible: Thrombus - None: Flow - Phasic: Augmentation -Normal: Reflux - None. 5. Peroneal Vein: 5.1. Compressibility - Fully compressible: Thrombus - None: Flow - Phasic: Augmentation -Normal: Reflux - None. 6. Great Saphenous Vein: 6.1. Compressibility - Fully compressible: Thrombus - None: Flow - Phasic: Augmentation - Normal: Reflux - None. LEFT: 1. Common Femoral Vein: 1.1. Compressibility - Fully compressible: Thrombus - None: Flow - Phasic: Augmentation -Normal: Reflux - None. 2. Femoral Vein: 2.1. Compressibility - Fully compressible: Thrombus - None: Flow - Phasic: Augmentation -Normal: Reflux - None. 3. Popliteal Vein: 3.1. Compressibility - Fully compressible: Thrombus - None : Flow - Phasic: Augmentation -Normal: Reflux - None. 4. Posterior Tibial Vein: 4.1. Compressibility - Fully compressible: Thrombus - None: Flow - Phasic: Augmentation -Normal: Reflux - None. 5. Peroneal Vein: 5.1. Compressibility - Fully compressible: Thrombus - None: Flow - Phasic: Augmentation -Normal: Reflux - None. 6. Great Saphenous Vein: 6.1. Compressibility - : Thrombus - : Flow - : Augmentation - : Reflux - . OTHER FINDINGS: Right: None significant. Left: The left greater saphenous vein has been previously removed. IMPRESSION: Right: No evidence of deep or superficial vein thrombosis of the right lower extremity. Normal valve function noted of the right side. Left: No evidence of deep or superficial vein thrombosis of the left lower extremity. Normal valve function noted of the left side. atient Name / ID : RICHARD BEGUM / [id number] Exam Date : 11/24/2016 11:17:00 ( Approved ) Study Comment : Sex / Age : M / 81Y Creator : jose luis Dictator : jose luis Service Inspector : Cancer Genetics Assistant : Eren Andino MD Approver2 : Report Date : 11/24/2016 14:15:24 My Comment : STUDY DESCRIPTION: HISTORY: diminished R pedal pulses PRIORS: None. TECHNIQUE: Pulse volume recording waveforms and segmental pressures of bilateral lower extremities at multiple levels were obtained. Ankle Brachial Indices (ABIs) were calculated. Report prepared by ASHER Celestin, RVT RIGHT LOWER EXTREMITY: * Brachial artery: Pressure - 169 mmHg. * High thigh: Pressure - mmHg: Ratio - : PVR waveform - Pulsatile * Low thigh: Pressure - mmHg: Ratio - PVR waveform: Pulsatile * Calf: Pressure - 220 mmHg: Ratio - NC PVR waveform: Pulsatile * Posterior tibial Artery: Pressure - 134 mmHg: Ratio - 0.79 PVR waveform: Pulsatile * Dorsalis pedis Artery: Pressure - 146 mmHg: Ratio - 0.86 PVR waveform: Pulsatile * Great toe: Pressure - mmHg: Ratio - PVR waveform: Ankle brachial index (SAM): 0.86 LEFT LOWER EXTREMITY: * Brachial artery: Pressure - 164 mmHg. * High thigh: Pressure - mmHg: Ratio - : PVR waveform - Pulsatile * Low thigh: Pressure - mmHg: Ratio - PVR waveform: Pulsatile * Calf: Pressure - 189 mmHg: Ratio - 1.12 PVR waveform: Pulsatile * Posterior tibial Artery: Pressure - 183 mmHg: Ratio - 1.08 PVR waveform: Pulsatile * Dorsalis pedis Artery: Pressure - 195 mmHg: Ratio - 1.15 PVR waveform: Pulsatile * Great toe: Pressure - mmHg: Ratio - PVR waveform: Ankle brachial index (SAM): 1.15 OTHER FINDINGS: Right: Left: IMPRESSION: Right: This exam reveals mildly decreased perfusion of the right lower extremity , noted at the iliac and tibial artery levels. Elevated tibial pressures likely related to vascular calcifications. Left: There was no evidence of hemodynamically significant arterial insufficiency in the left lower extremity. Patient Name / ID : RICHARD BEGUM / [id number] Exam Date : 11/23/2016 12:52:42 ( Approved ) Study Comment : Sex / Age : M / 81Y Creator : NICOLAS ZEPEDA Dictator : Venkatesh Rosen MD Service Inspector : Cancer Genetics Assistant : Venkatesh Rosen MD Approver2 : Report Date : 11/23/2016 13:05:28 My Comment : PROCEDURE: Left Knee Radiographs. HISTORY: Pain. COMPARISON: None. FINDINGS: BONES: Normal. No fracture. 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 Lesser narrowing of lateral joint compartment. Narrowing of patellofemoral articulation noted. No articular erosions. JOINT EFFUSION: None. OTHER FINDINGS: None. IMPRESSION: Tricompartmental osteoarthritis most severe medially.
[2016-11-25 09:22] VITALS: BP 170/77; PULSE 60; RESP 20; TEMP 98.3
[2016-11-25] MEDS: Lidocaine 5% Patch TD SCH (11:09)
[2016-11-25] MEDS: Metoprolol Succinate 25 mg XL Tab PO SCH (11:10)
[2016-11-25] MEDS: Sodium Chloride 0.9% 1,000 ML IV SCH (11:10)
[2016-11-25 11:16] LABS: BASO % 0.8 % (0.0-2.0); EOS # 0.1 K/uL (0.0-0.7); EOS % 1.5 % (0.0-4.0); HEMATOCRIT 45.2 % (35.0-51.0); LYMPH # 1.1 K/uL (1.0-4.3); LYMPH % 27.4 % (20.0-40.0); MEAN CELL VOLUME 89.2 fL (80.0-94.0); MEAN CORPUSCULAR HEMOGLOBIN 29.4 pg (27.0-31.0); MEAN PLATELET VOLUME 11.5 fL (7.2-11.7); MONO # 0.3 K/uL (0.0-0.8); MONO % 6.5 % (0.0-10.0); NRBC % 0.1 % (0.0-2.0); RED CELL DISTRIBUTION WIDTH 13.7 % (11.5-14.5); WHITE BLOOD COUNT 4.2 K/uL (4.8-10.8)
[2016-11-25 11:21] LABS: CHLORIDE 103 mmol/L (98-107); SODIUM 138 mmol/L (132-148)
[2016-11-25 11:22] LABS: POTASSIUM 4.3 mmol/L (3.6-5.2)
[2016-11-25] MEDS ORDERED: Magnesium Hydroxide Susp 30 ml UD PO ONE (11:23)
[2016-11-25 11:24] LABS: ALB/GLOB RATIO 1.1 (1.0-2.1); ALKALINE PHOSPHATASE 65 U/L (38-126); AST/SGOT 20 U/L (17-59); BILIRUBIN,TOTAL 1.2 mg/dL (0.2-1.3); BLOOD UREA NITROGEN 21 mg/dL (9-20); CARBON DIOXIDE 23 mmol/L (22-30); GFR AFRICAN-AMERICAN > 60; GLUCOSE,RANDOM 173 mg/dL (75-110); TOTAL PROTEIN 7.2 g/dL (6.3-8.3)
[2016-11-25 11:25] LABS: ALT/SGPT 19 U/L (21-72); CALCIUM 8.7 mg/dl (8.6-10.4); MAGNESIUM 1.9 mg/dL (1.6-2.3)
[2016-11-25 12:54] LABS: RBC URINE < 1 /hpf (0-3); URINE BILIRUBIN NEGATIVE (NEGATIVE); URINE BLOOD 1+ (NEGATIVE); URINE COLOR Yellow (YELLOW); URINE GLUCOSE (UA) NORMAL (Normal); URINE KETONE NEGATIVE (NEGATIVE); URINE LEUKOCYTE ESTERASE NEG Leu/uL (Negative); URINE PROTEIN NEGATIVE (NEGATIVE); URINE UROBILINOGEN NORMAL mg/dL (0.2-1.0); WBC URINE < 1 /hpf (0-5)
--- NOTE | 2016-11-25 12:54 | CP.PCM.PN ---
Subjective - Date & Time of Evaluation Date of Evaluation: 11/25/16 Time of Evaluation: 12:00 - Subjective Subjective: Seen by orthopedic and received injection in his left knee observe, stable cardiac Objective - Vital Signs/Intake and Output Vital Signs (last 24 hours): Temp Pulse Resp BP Pulse Ox 98.3 F 60 20 170/77 H 96 11/25/16 08:00 11/25/16 08:00 11/25/16 08:00 11/25/16 08:00 11/25/16 08:00 Intake and Output: 11/25/16 11/25/16 06:59 18:59 Output Total 250 Balance -250 - Medications Medications: Current Medications Aspirin (Ecotrin) 81 mg PO DAILY [facility] Last Admin: 11/25/16 11:10 Dose: 81 mg Famotidine (Pepcid) 20 mg PO DAILY [facility] Last Admin: 11/25/16 11:10 Dose: 20 mg Heparin Sodium (Porcine) (Heparin) 5,000 units SC Q12 [facility] Last Admin: 11/25/16 11:10 Dose: 5,000 units Hydralazine HCl (Apresoline) 10 mg IVP Q6H PRN PRN Reason: Systolic Blood Pressure Sodium Chloride (Sodium Chloride 0.9%) 1,000 mls @ 50 mls/hr IV .Q20H [facility] Last Admin: 11/25/16 11:10 Dose: Not Given Ceftriaxone Sodium 1 gm/ (Sodium Chloride) 100 mls @ 100 mls/hr IVPB Q24H [facility] Ibuprofen (Motrin Oral Susp) 200 mg PO Q6H [facility] Last Admin: 11/25/16 11:09 Dose: 200 mg Lidocaine (Lidoderm) 1 ea TD DAILY [facility] Last Admin: 11/25/16 11:09 Dose: 1 ea Metoprolol Succinate (Toprol Xl) 25 mg PO DAILY [facility] Last Admin: 11/25/16 11:10 Dose: 25 mg Oxybutynin Chloride (Ditropan Xl) 5 mg PO DAILY [facility] Last Admin: 11/25/16 11:10 Dose: 5 mg Saliva Substitute (Mouth Kote 236 Ml) 236 ml MM BID PRN PRN Reason: Dry mouth - Labs Labs: 11/25/16 11:05 11/25/16 11:05 PT 10.8 SECONDS (9.7-12.2) 11/24/16 08:20 INR 1.0 11/24/16 08:20 APTT 34 SECONDS (21-34) 11/24/16 08:20 - Constitutional Appears: Non-toxic - Head Exam Head Exam: ATRAUMATIC - Eye Exam Eye Exam: EOMI - ENT Exam ENT Exam: Mucous Membranes Moist - Neck Exam Neck Exam: Full ROM. absent: Lymphadenopathy, Thyromegaly - Respiratory Exam Respiratory Exam: Clear to Ausculation Bilateral. absent: Rales - Cardiovascular Exam Cardiovascular Exam: REGULAR RHYTHM, Murmur - GI/Abdominal Exam GI & Abdominal Exam: Normal Bowel Sounds. absent: Organomegaly - Rectal Exam Rectal Exam: Deferred - Extremities Exam Extremities Exam: Normal Capillary Refill. 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
--- NOTE | 2016-11-25 13:45 | CARD ---
APPROVED REPORT EXAM: Two-dimensional and M-mode echocardiogram with Doppler and color Doppler. Other Information Quality : Technically LimitedRhythm : NSR INDICATION Chest Pain M-Mode DIMENSIONS RVDd1.37 (2.1-3.2cm)Left Atrium (MM)3.87 (2.5-4.0cm) IVSd0.78 (0.7-1.1cm)Aortic Root3.20 (2.2-3.7cm) LVDd6.21 (4.0-5.6cm)Aortic Cusp Exc.1.91 (1.5-2.0cm) PWd1.09 (0.7-1.1cm)FS (%) 32 % LVDs4.22 (2.0-3.8cm)LVEF (%)59 (>50%) Aortic Valve AoV Peak Oqcpjdws250.0cm/Bob Peak GR.6mmHgAI P 1/2 Akok802il Mitral Valve MV E Ofpoemqd45.7cm/sMV A Gxldupsm14.9cm/sE/A ratio0.9 TDI E/Lateral E'0.0E/Medial E'0.0 Tricuspid Valve TR Peak Kjrllbus186gg/sTR Peak Gr.46brLpYYDV56roSu LEFT VENTRICLE The left ventricle is normal size. There is normal left ventricular wall thickness. The left ventricular function is normal. The left ventricular ejection fraction is within the normal range. No regional wall motion abnormalities noted. The left ventricular diastolic function is normal. No left ventricle thrombus noted on this study. There is no ventricular septal defect visualized. There is no left ventricular aneurysm. There is no mass noted in the left ventricle. RIGHT VENTRICLE The right ventricle is normal size. There is normal right ventricular wall thickness. The right ventricular systolic function is normal. ATRIA The left atrium size is normal. The right atrium size is normal. The interatrial septum is intact with no evidence for an atrial septal defect. AORTIC VALVE The aortic valve is normal in structure and function. There is trace to mild aortic regurgitation. There is no aortic valvular stenosis. There is no aortic valvular vegetation. MITRAL VALVE The mitral valve is normal in structure and function. There is no evidence of mitral valve prolapse. There is no mitral valve stenosis. There is no mitral valve regurgitation noted. TRICUSPID VALVE The tricuspid valve is normal in structure and function. There is mild tricuspid regurgitation. Right ventricular systolic pressure is estimated at 30-40 mmHg. There is no tricuspid valve prolapse or vegetation. There is no tricuspid valve stenosis. PULMONIC VALVE The pulmonary valve is normal in structure and function. There is no pulmonic valvular regurgitation. There is no pulmonic valvular stenosis. GREAT VESSELS The aortic root is normal in size. The ascending aorta is normal in size. The pulmonary artery is normal. The IVC is normal in size and collapses >50% with inspiration. PERICARDIAL EFFUSION The pericardium appears normal. There is no pleural effusion. <Conclusion> The left ventricular function is normal. The left ventricular ejection fraction is within the normal range. No regional wall motion abnormalities noted. There is trace to mild aortic regurgitation. There is mild tricuspid regurgitation. Right ventricular systolic pressure is estimated at 30-40 mmHg.
--- NOTE | 2016-11-25 14:11 | CP.PCM.PN ---
Subjective - Date & Time of Evaluation Date of Evaluation: 11/25/16 Time of Evaluation: 07:15 - Subjective Subjective: Surgery: Taylor Pt seen and examined at bedside. Resting comfortably in bed. Pt still reports b/ l leg pain R>L. Objective - Vital Signs/Intake and Output Vital Signs (last 24 hours): Temp Pulse Resp BP Pulse Ox 98.3 F 60 20 170/77 H 96 11/25/16 08:00 11/25/16 08:00 11/25/16 08:00 11/25/16 08:00 11/25/16 08:00 Intake and Output: 11/25/16 11/25/16 06:59 18:59 Output Total 250 Balance -250 - Medications Medications: Current Medications Aspirin (Ecotrin) 81 mg PO DAILY [facility] Last Admin: 11/25/16 11:10 Dose: 81 mg Famotidine (Pepcid) 20 mg PO DAILY [facility] Last Admin: 11/25/16 11:10 Dose: 20 mg Heparin Sodium (Porcine) (Heparin) 5,000 units SC Q12 [facility] Last Admin: 11/25/16 11:10 Dose: 5,000 units Hydralazine HCl (Apresoline) 10 mg IVP Q6H PRN PRN Reason: Systolic Blood Pressure Sodium Chloride (Sodium Chloride 0.9%) 1,000 mls @ 50 mls/hr IV .Q20H [facility] Last Admin: 11/25/16 11:10 Dose: Not Given Ceftriaxone Sodium 1 gm/ (Sodium Chloride) 100 mls @ 100 mls/hr IVPB Q24H [facility] Ibuprofen (Motrin Oral Susp) 200 mg PO Q6H [facility] Last Admin: 11/25/16 11:09 Dose: 200 mg Lidocaine (Lidoderm) 1 ea TD DAILY [facility] Last Admin: 11/25/16 11:09 Dose: 1 ea Metoprolol Succinate (Toprol Xl) 25 mg PO DAILY [facility] Last Admin: 11/25/16 11:10 Dose: 25 mg Oxybutynin Chloride (Ditropan Xl) 5 mg PO DAILY [facility] Last Admin: 11/25/16 11:10 Dose: 5 mg Saliva Substitute (Mouth Kote 236 Ml) 236 ml MM BID PRN PRN Reason: Dry mouth - Labs Labs: 11/25/16 11:05 11/25/16 11:05 PT 10.8 SECONDS (9.7-12.2) 11/24/16 08:20 INR 1.0 11/24/16 08:20 APTT 34 SECONDS (21-34) 11/24/16 08:20 - Constitutional Appears: No Acute Distress - Head Exam Head Exam: ATRAUMATIC, NORMOCEPHALIC - Eye Exam Eye Exam: EOMI. absent: Scleral icterus - ENT Exam ENT Exam: Mucous Membranes Moist - Neck Exam Neck Exam: Full ROM - Respiratory Exam Respiratory Exam: NORMAL BREATHING PATTERN - GI/Abdominal Exam GI & Abdominal Exam: Soft. absent: Tenderness - Extremities Exam Extremities Exam: Tenderness - Neurological Exam Neurological Exam: Alert, Awake, Oriented x3 Assessment and Plan - Assessment and Plan (Free Text) Assessment: 81M s/p multiple falls with diminished R pedal pulses - Venous doppler negative for DVT and SVT - Right lower extremity- mild decreased perfusion noted in the iliac and tibial artery - Re- evaluate patient in AM for possible intervention Case d/w Dr. Taylor Mendiola PGY1
--- NOTE | 2016-11-25 19:44 | CP.PCM.DIS ---
Provider - Provider Date of Admission: 11/23/16 16:36 Attending physician: Shani Dominique DO Primary care physician: Dr. Cardoza Consults: Obstetrical Tech: Dr. Pearson General Surgery: Dr. Vazquez Orthopedic Surgery: Dr. Raphael Palliative Care: Majo Augustin Time Spent in preparation of Discharge (in minutes): 31 Diagnosis - Discharge Diagnosis (1) Frequent falls Status: Chronic Comment: please see hospital course (2) Arthritis of knee, left Status: Acute Comment: please see hospital course (3) Arterial disease Status: Acute Comment: please see hospital course (4) Hypertension Status: Chronic (5) Overactive bladder Status: Chronic Comment: please see hospital course Hospital Course - Lab Results Lab Results: Most Recent Lab Values WBC 4.2 K/uL (4.8-10.8) L 11/25/16 11:05 RBC 5.07 Mil/uL (4.40-5.90) 11/25/16 11:05 Hgb 14.9 g/dL (12.0-18.0) 11/25/16 11:05 Hct 45.2 % (35.0-51.0) 11/25/16 11:05 MCV 89.2 fL (80.0-94.0) 11/25/16 11:05 MCH 29.4 pg (27.0-31.0) 11/25/16 11:05 MCHC 33.0 g/dL (33.0-37.0) 11/25/16 11:05 RDW 13.7 % (11.5-14.5) 11/25/16 11:05 Plt Count 197 K/uL (130-400) 11/25/16 11:05 MPV 11.5 fL (7.2-11.7) 11/25/16 11:05 Neut % (Auto) 63.8 % (50.0-75.0) 11/25/16 11:05 Lymph % (Auto) 27.4 % (20.0-40.0) 11/25/16 11:05 [place] % (Auto) 6.5 % (0.0-10.0) 11/25/16 11:05 Eos % (Auto) 1.5 % (0.0-4.0) 11/25/16 11:05 Baso % (Auto) 0.8 % (0.0-2.0) 11/25/16 11:05 Neut # 2.7 K/uL (1.8-7.0) 11/25/16 11:05 Lymph # 1.1 K/uL (1.0-4.3) 11/25/16 11:05 [place] # 0.3 K/uL (0.0-0.8) 11/25/16 11:05 Eos # 0.1 K/uL (0.0-0.7) 11/25/16 11:05 Baso # 0.0 K/uL (0.0-0.2) 11/25/16 11:05 PT 10.8 SECONDS (9.7-12.2) 11/24/16 08:20 INR 1.0 11/24/16 08:20 APTT 34 SECONDS (21-34) 11/24/16 08:20 Sodium 138 mmol/L (132-148) 11/25/16 11:05 Potassium 4.3 mmol/L (3.6-5.2) 11/25/16 11:05 Chloride 103 mmol/L (98-107) 11/25/16 11:05 Carbon Dioxide 23 mmol/L (22-30) 11/25/16 11:05 Anion Gap 17 (10-20) 11/25/16 11:05 BUN 21 mg/dL (9-20) H 11/25/16 11:05 Creatinine 0.9 MG/DL (0.8-1.5) 11/25/16 11:05 Est GFR ( Amer) > 60 11/25/16 11:05 Est GFR (Non-Af Amer) > 60 11/25/16 11:05 Random Glucose 173 mg/dL (75-110) H 11/25/16 11:05 Hemoglobin A1c 5.9 % (4.2-6.5) 11/24/16 08:20 Calcium 8.7 mg/dl (8.6-10.4) 11/25/16 11:05 Magnesium 1.9 mg/dL (1.6-2.3) 11/25/16 11:05 Total Bilirubin 1.2 mg/dL (0.2-1.3) 11/25/16 11:05 AST 20 U/L (17-59) 11/25/16 11:05 ALT 19 U/L (21-72) L 11/25/16 11:05 Alkaline Phosphatase 65 U/L (38-126) 11/25/16 11:05 Total Creatine Kinase 61 U/L (55-170) 11/24/16 01:57 CK-MB (Mass) 1.49 ng/mL (0.0-3.38) 11/24/16 01:57 Troponin I < 0.0120 ng/mL (0.00-0.120) 11/23/16 13:03 Troponin I, Quant < 0.0120 ng/mL (0.00-0.120) 11/24/16 01:57 Total Protein 7.2 g/dL (6.3-8.3) 11/25/16 11:05 Albumin 3.8 g/dL (3.5-5.0) 11/25/16 11:05 Globulin 3.5 gm/dL (2.2-3.9) 11/25/16 11:05 Albumin/Globulin Ratio 1.1 (1.0-2.1) 11/25/16 11:05 Triglycerides 110 mg/dL (0-149) 11/24/16 08:20 Cholesterol 209 mg/dL (0-199) H 11/24/16 08:20 LDL Cholesterol Direct 149 mg/dL (0-129) H 11/24/16 08:20 HDL Cholesterol 34 mg/dL (30-70) 11/24/16 08:20 Lipase 39 U/L (23-300) 11/23/16 13:03 Urine Color Yellow (YELLOW) 11/25/16 12:41 Urine Clarity Clear (Clear) 11/25/16 12:41 Urine pH 5.0 (5.0-8.0) 11/25/16 12:41 Ur Specific [place] 1.012 (1.003-1.030) 11/25/16 12:41 Urine Protein Negative mg/dL (NEGATIVE) 11/25/16 12:41 Urine Glucose (UA) Normal mg/dL (Normal) 11/25/16 12:41 Urine Ketones Negative mg/dL (NEGATIVE) 11/25/16 12:41 Urine Blood 1+ (NEGATIVE) H 11/25/16 12:41 Urine Nitrate Negative (NEGATIVE) 11/25/16 12:41 Urine Bilirubin Negative (NEGATIVE) 11/25/16 12:41 Urine Urobilinogen Normal mg/dL (0.2-1.0) 11/25/16 12:41 Ur Leukocyte Esterase Neg Yun/uL (Negative) 11/25/16 12:41 Urine WBC (Auto) < 1 /hpf (0-5) 11/25/16 12:41 Urine RBC (Auto) < 1 /hpf (0-3) 11/25/16 12:41 Ur Squamous Epith Cells < 1 /hpf (0-5) 11/23/16 13:03 - Hospital Course Hospital Course: On admission: CC: "I keep falling" HPI: Patient is an 81 year old Mongolian speaking male who presents to the emergency department status post fall earlier today. Patient was brought into the emergency department by his family. Patient states this is the third fall which has occurred in the past 5 days. He had unwitnessed fall 5 and 3 days ago , which did not result in trauma. Patient noted he alerted his neighbors by throwing an orange to them to have assistance following fall. He denies loss of consciousness, vertigo, lightheadedness, tinnitus and trauma. Patient states he fell today by coming down to his knees and subsequently hit hit left head. He denies loss of consciousness on todays episode. Patient attributes falls to severe pain to bilateral lower extremities, generalized fatigue, and blurry vision. He reports pain has been present for the past 5 years but has become increasingly worse over the past few months making ambulation difficult. He typically ambulates using a cane but his mobility has been severely limited as of late due to 10/10 intensity sharp pain to legs, left greater than right. Patient also admits to numbness and tingling to bilateral lower extremities, . Patient admits to reproducible chest pain and notes he follow-up regularly with prosthetic aides teacher, Dr. Vick Pearson. He is uncertain of his medical history but states he had open heart surgery and pacemaker in the past and admits to history of hypertension and hyperlipidemia. Patient also admits to abdominal pain, nausea, constipation x 3 days, and increased urinary frequency. He denies dysuria. PMD: Dr. Prudencio Artis Obstetrical Tech: Dr. Pearson Urology: Dr. Horner HPI: hypertension, hyperlipidemia, bradycardia s/p pacemaker placement Medications: Aspirin 81 mg po daily, Metoprolol 25 mg po daily, Solifenacin 10 mg po daily Allergies: NKDA Family History: patient does not know family history Surgical History: Bypass surgery, pacemaker placement Social: Denies tobacco, alcohol, and illicit drug use. Patient uses cane to ambulate. Lives at home with and son. During hospital course: Patient was evaluated for acute neurological pathology as part of fall work up. Head CT indicated diffuse atrophy with prominence of the ventricles and sulci noted. No mass effect or edema. The hamilton-white matter differentiation appears intact (please see full report). On physical exam, cranial nerves were noted to be grossly intact. Notably, patient had reduced pedal pulse of the right lower extremity and swelling of bilateral knees. Left lower extremity was painful to palpation and pain elicited with ROM. General surgery, Dr. Vazquez was consulted for possible PAD and venous and arterial dopplers were ordered which were negative for DVT/SVT but demonstrated mild decreased perfusion of right iliac and tibial artery, respectively. SAM assessment was as follows: right 0.86 and left 1.15. Left Knee X-Ray showed tricompartmental osteoarthritis most severe in the medial compartment with complete loss of the joint space medially. Lesser narrowing of lateral joint compartment. Narrowing of patellofemoral articulation noted. No articular erosions (see full report). Orthopedic surgeon, Dr. Raphael was consulted and knee injection (11/25/16) was performed with 40mg depomedrol and 5cc 0.5% marcaine. Patient was given one time dose of Toradol 30 mg IM. As patient has a history of CAD, prosthetic aides teacher, Dr. Pearson, was consulted. CIRILO panel was negative and no acute changes were noted on serial EKGs. Echocardiogram was obtained which indicated normal left ventricular function and ejection fraction with no regional wall motion abnormalities, trace to mild aortic regurgitation, mild tricuspid regurgitation , and right ventricular systolic pressure estimated at 30-[address] Pearson indicated patient was stable from a cardiac standpoint and patient was continued on home medications aspirin 81 mg po daily and metoprolol 25 mg po daily. Patient was hypertensive systolic >200 on day of admission and Hydralazine 10 mg IVP q6h was started for SBP >160. Patient also has history of overactive bladder and typically takes Vesicare at home (not on formulary). Patient was started on Oxybutynin while hospitalized. Due to complaint of increased urinary frequency and dysuria (11/25/16) urinalysis (negative) and culture were obtained and patient was started on Rocephin 1 gm IVPB q24h (11/25/16 ). He was discharged with a 5 day course of Ciprofloxacin po. Urinalysis on admission indicated 1+ blood and renal ultrasound was performed which showed bilateral renal cysts measuring up to 5.1 cm on the right and 4.7 cm on the left. Nonobstructing 8 mm right renal calculus. No hydronephrosis bilaterally. Patient was informed he would need to follow-up renal ultrasound findings (cysts ) with his primary care doctor. Please note this is a summary of the hospital course. For full details, please see patient chart. Discharge Summary: Patient medically stable for discharge home. Patient instructed to continue home medications as follows: Metoprolol 25 mg by mouth daily, Aspirin 81 mg by mouth daily, Vesicare 10 mg by mouth daily Patient instructed to take the following new prescription: Ciprofloxacin 750 mg by mouth twice daily for 5 days (total of 10 pills) Patient instructed to establish care with [facility] for post-hospitalization follow-up and care within one month. Patient instructed to follow-up with Orthopedist within one month for knee pain. Patient instructed to follow-up with Urologist, Dr. Horner, within one week. Patient instructed to follow-up with primary care doctor regarding results of renal ultrasound. Patient instructed to return to emergency department if symptoms recur. Patient given detailed instructions at bedside. Patient understands and agrees. - Date & Time of H&P Date of H&P: 11/23/16 Time of H&P: 17:24 Discharge Exam - Head Exam Head Exam: ATRAUMATIC, NORMOCEPHALIC - Eye Exam Eye Exam: EOMI, Periorbital tenderness Pupil Exam: PERRL - ENT Exam ENT Exam: Mucous Membranes Moist - Respiratory Exam Respiratory Exam: Clear to PA & Lateral, NORMAL BREATHING PATTERN, UNREMARKABLE - Cardiovascular Exam Cardiovascular Exam: +S1, +S2. absent: Bradycardia, Tachycardia - GI/Abdominal Exam GI & Abdominal Exam: Normal Bowel Sounds. absent: Distended, Firm - Extremities Exam Extremities exam: joint swelling, normal capillary refill - Neurological Exam Neurological exam: Alert, CN II-XII Intact, Oriented x3 - Psychiatric Exam Psychiatric exam: Normal Affect, Normal Mood - Skin Skin Exam: Intact, Normal Color, Warm Discharge Plan - Discharge Medications Prescriptions: Aspirin [Ecotrin] 81 mg PO DAILY #30 Ciprofloxacin HCl 750 mg PO BID #10 tablet Metoprolol Succinate [Toprol XL] 25 mg PO DAILY #30 tab Solifenacin Succinate [Vesicare] 10 mg PO DAILY #30 tablet - Follow Up Plan Condition: STABLE Disposition: HOME/ ROUTINE Instructions: Angina (DC), Chest Pain (DC), Weakness (GEN) Additional Instructions: Patient medically stable for discharge home. Patient instructed to continue home medications as follows: Metoprolol 25 mg by mouth daily, Aspirin 81 mg by mouth daily, Vesicare 10 mg by mouth daily Patient instructed to take the following new prescription: Ciprofloxacin 750 mg by mouth twice daily for 5 days (total of 10 pills) Patient instructed to establish care with [facility] for post-hospitalization follow-up and care within one month. Patient instructed to follow-up with Orthopedist within one month for knee pain. Patient instructed to follow-up with Urologist, Dr. Horner, within one week. Patient instructed to follow-up with primary care doctor regarding results of renal ultrasound. Patient instructed to return to emergency department if symptoms recur. Patient given detailed instructions at bedside. Patient understands and agrees. Referrals: Briseida Horner MD [Staff Provider] - Vick Pearson MD [Staff Provider] -
== END 2016-11-25 19:51 | disposition home or self-care (01) | DRG 245 ==
LOC: C.ER 11:17 → C.9E 16:07 → OBSVTOIN 16:36 → C.9E 16:44 → C.5T 16:44
PROVIDERS: ADMIT Hospitalist; ATTEND Hospitalist
DX: M17.12 Unilateral primary osteoarthritis, left knee (principal); I73.9 Peripheral vascular disease, unspecified; N28.1 Cyst of kidney, acquired; I10 Essential (primary) hypertension; E78.5 Hyperlipidemia, unspecified; E78.00 Pure hypercholesterolemia, unspecified; I25.10 Atherosclerotic heart disease of native coronary artery without angina pectoris; K59.00 Constipation, unspecified; N20.0 Calculus of kidney; N32.81 Overactive bladder; N40.0 Benign prostatic hyperplasia without lower urinary tract symptoms; R29.6 Repeated falls; Z51.5 Encounter for palliative care; Z79.82 Long term (current) use of aspirin; Z91.81 History of falling; Z95.0 Presence of cardiac pacemaker